=== PATIENT | female | born 1985 | race Caucasian/White ===

== ENCOUNTER 2017-11-18 07:45 | Inpatient (IN) | payer OTHER ==
[~2017-11-18] VITALS: Ht 170.2 cm; Wt 90.3 kg
[~2017-11-18 07:45] MED LIST: DOCU100C33 PO; IBUP-1222 PO
[2017-11-18] MEDS ORDERED: NEWBORN KIT ONE (21:58)
[2017-11-18] MEDS ORDERED: OXYTOCIN 30U/ 0.9% NaCL 500ML 500 ML ONE (21:58)
[2017-11-18] MEDS ORDERED: SODIUM CITRATE/CITRIC ACID 30 ML UDC ONE (21:59)
[2017-11-18] MEDS ORDERED: LACTATED RINGERS 1,000 ML IV SCH ×2 (22:02→22:30)
[2017-11-18] MEDS ORDERED: OXYTOCIN 30U/ 0.9% NaCL 500ML 500 ML IV SCH (22:02)
[2017-11-18 22:29] LABS: BASOPHILS # (AUTO) 0.02 x10^3/uL (0-0.1); BASOPHILS % (AUTO) 0 % (0-1); EOSINOPHILS % (AUTO) 1 % (1-7); LYMPHOCYTES # (AUTO) 1.83 x10^3/uL (1-3.4); LYMPHOCYTES % (AUTO) 17 % (22-44); MD NO; MEAN CORPUSCULAR HEMOGLOBIN 32.4 pg (27.0-34.8); MEAN CORPUSCULAR HGB CONC 34.1 g/dL (32.4-35.8); MEAN CORPUSCULAR VOLUME 94.8 fL (80-100); MEAN PLATELET VOLUME 8.9 fL (7.4-10.4); MONOCYTES % (AUTO) 8 % (2-9); NEUTROPHILS # (AUTO) 8.19 x10^3/uL (1.8-6.8); NEUTROPHILS % (AUTO) 74 % (42-75); PLATELET COUNT 189 x10^3/uL (130-400); RED BLOOD COUNT 4.14 x10^6/uL (3.82-5.3); RED CELL DISTRIBUTION WIDTH 13.8 % (9.6-15.2)
[2017-11-18] MEDS ORDERED: METOCLOPRAMIDE 5 MG/ML, 2ML IV ONE (22:30)
[2017-11-18] MEDS ORDERED: LACTATED RINGERS 1,000 ML IVBOLUS ONE (22:30)
[2017-11-18] MEDS ORDERED: SODIUM CITRATE/CITRIC ACID 30 ML UDC PO ONE (22:30)
[2017-11-18] MEDS ORDERED: PROMETHAZINE 25 MG/ML, 1ML IV PRN (23:00)
[2017-11-18] MEDS ORDERED: MEPERIDINE/PF 25MG/0.5ML IVPush PRN (23:00)
[2017-11-18] MEDS ORDERED: EPHEDRINE 50 MG/ML, 1ML IVPush PRN (23:00)
[2017-11-18] MEDS ORDERED: ONDANSETRON 2MG/ML, 2ML IVPush PRN (23:00)
[2017-11-18] MEDS ORDERED: FENTANYL PF 100 MCG/2ML IV PRN (23:00)
[2017-11-18] MEDS ORDERED: OXYcodone 5 MG/5 ML ORAL.SOL UDC PO PRN (23:00)
[2017-11-18] MEDS ORDERED: HYDROmorphone 1 MG/ML, 1ML IV PRN (23:00)
[2017-11-18] MEDS ORDERED: MIDAZOLAM 1 MG/ML, 2ML IV PRN (23:00)
[2017-11-18] MEDS ORDERED: hydrALAzine 20 MG/ML, 1ML IV PRN (23:00)
[2017-11-18] MEDS ORDERED: LABETALOL 5MG/ML, 20ML IV PRN (23:00)
[2017-11-18] MEDS ORDERED: ALBUTEROL SULFATE 2.5 MG/3 ML NPPB PRN (23:00)
[2017-11-18] MEDS ORDERED: HYDROcodone/APAP 7.5-325MG/15ML UDC PO PRN (23:00)
[2017-11-18] MEDS ORDERED: OXYTOCIN 10 UNITS/ML, 1ML ONE (23:28)
[2017-11-18] MEDS ORDERED: PHENYLEPHRINE 10 MG/ML ONE (23:28)
[2017-11-18] MEDS ORDERED: KETOROLAC 30 MG/1 ML ONE (23:28)
[2017-11-18] MEDS ORDERED: CEFAZOLIN 1,000 MG ONE (23:28)
[2017-11-18] MEDS ORDERED: DEXAMETHASONE 4 MG/ML, 1ML ONE (23:28)
[2017-11-18] MEDS ORDERED: EPHEDRINE 50 MG/ML, 1ML ONE (23:28)
[2017-11-18] MEDS: OXYTOCIN 30U/ 0.9% NaCL 500ML 500 ML IV SCH (23:40)
[2017-11-18] MEDS ORDERED: ONDANSETRON ODT 4 MG ONE (23:48)
[2017-11-19] MEDS ORDERED: CALCIUM CARBONATE 500 MG TAB.CHEW PO PRN
[2017-11-19] MEDS ORDERED: OXYcodone/APAP 5/325MG TABLET PO PRN ×2
[2017-11-19] MEDS ORDERED: MISOPROSTOL 200 MCG TABLET PR PRN
[2017-11-19] MEDS ORDERED: MEASLES,MUMPS&RUBELLA VACC/PF 0.5 ML SQ PRN
[2017-11-19] MEDS ORDERED: ACETAMINOPHEN 325 MG TABLET PO PRN ×2
[2017-11-19] MEDS ORDERED: ONDANSETRON 2MG/ML, 2ML IV PRN
[2017-11-19] MEDS ORDERED: MAGNESIUM HYDROXIDE 8%, 30ML UDC PO PRN
[2017-11-19] MEDS ORDERED: RHOGAM FROM BLOOD BANK 1 NOTE EA IM/IV ONE
[2017-11-19] MEDS ORDERED: DIPH,PERTUSS(ACELL),TET VAC/PF NC IM-VACC PRN
[2017-11-19 02:30] VITALS: BP 103/63
[2017-11-19] MEDS ORDERED: FENTANYL PF 100 MCG/2ML ONE (06:07)
[2017-11-19] MEDS ORDERED: KETOROLAC 30 MG/1 ML IM SCH (06:30)
[2017-11-19] MEDS: KETOROLAC 30 MG/1 ML IM/IV SCH ×3 (06:40→18:21)
[2017-11-19 08:25] VITALS: BP 101/61
[2017-11-19 08:55] LABS: MEAN CORPUSCULAR HEMOGLOBIN 32.3 pg (27.0-34.8); MEAN CORPUSCULAR HGB CONC 34.1 g/dL (32.4-35.8); MEAN CORPUSCULAR VOLUME 94.8 fL (80-100); MEAN PLATELET VOLUME 8.6 fL (7.4-10.4); PLATELET COUNT 160 x10^3/uL (130-400); RED CELL DISTRIBUTION WIDTH 13.6 % (9.6-15.2)
[2017-11-19] MEDS: PRENATAL VIT/IRON/FA 1 EACH TABLET PO SCH (09:00)
[2017-11-19 09:12] LABS: BASOPHILS # (AUTO) 0.05 x10^3/uL (0-0.1); BASOPHILS % (AUTO) 0 % (0-1); EOSINOPHILS % (AUTO) 0 % (1-7); LYMPHOCYTES # (AUTO) 1.12 x10^3/uL (1-3.4); LYMPHOCYTES % (AUTO) 9 % (22-44); MD SCAN; MONOCYTES # (AUTO) 0.65 x10^3/uL (0.2-0.8); MONOCYTES % (AUTO) 5 % (2-9); NEUTROPHILS # (AUTO) 10.48 x10^3/uL (1.8-6.8); NEUTROPHILS % (AUTO) 85 % (42-75)
[2017-11-19] MEDS: OXYTOCIN 30U/ 0.9% NaCL 500ML 500 ML IV SCH ×2 (09:40→19:40)
[2017-11-19] MEDS: MEPERIDINE/PF 50 MG/ML IM PRN ×2 (11:15→19:33)
[2017-11-19 12:35] VITALS: BP 94/57
[2017-11-19 16:30] VITALS: BP 94/57
[2017-11-19] MEDS: DOCUSATE 100 MG CAPSULE PO PRN (17:05)
[2017-11-19 20:00] VITALS: BP 94/59
[2017-11-20] MEDS: KETOROLAC 30 MG/1 ML IM/IV SCH ×3 (00:03→11:52)
[2017-11-20] MEDS: MEPERIDINE/PF 50 MG/ML IM PRN (00:21)
[2017-11-20] MEDS: OXYTOCIN 30U/ 0.9% NaCL 500ML 500 ML IV SCH ×2 (05:40→15:40)
[2017-11-20] MEDS: DOCUSATE 100 MG CAPSULE PO PRN ×2 (08:21→23:30)
[2017-11-20] MEDS: PRENATAL VIT/IRON/FA 1 EACH TABLET PO SCH (09:00)
[2017-11-20] MEDS: IBUPROFEN 600 MG TABLET PO PRN ×2 (17:29→23:31)
[2017-11-20 20:00] VITALS: BP 103/70
[2017-11-21] MEDS: OXYTOCIN 30U/ 0.9% NaCL 500ML 500 ML IV SCH ×2 (01:40→01:41)
[2017-11-21] MEDS: IBUPROFEN 600 MG TABLET PO PRN ×2 (05:33→12:10)
[2017-11-21 07:20] VITALS: BP 100/64
[2017-11-21] MEDS: PRENATAL VIT/IRON/FA 1 EACH TABLET PO SCH (07:40)
[2017-11-21] MEDS: DOCUSATE 100 MG CAPSULE PO PRN (07:41)
[2017-11-21] MEDS ORDERED: IBUP-1222 PO (10:06)
[2017-11-21] MEDS ORDERED: OXYC-302 PO (10:06)
== END 2017-11-21 14:14 | disposition home or self-care (01) | DRG 766 ==
LOC: LDIP 21:55 → 2NW 11-19 02:14
PROVIDERS: ADMIT Obstetrics & Gynecology; ATTEND Obstetrics & Gynecology
PROC: 10D00Z1 Extraction of Products of Conception, Low, Open Approach (ICD-10-PCS; principal; 2017-11-19)
PROC: 3E0234Z Introduction of Serum, Toxoid and Vaccine into Muscle, Percutaneous Approach (ICD-10-PCS; 2017-11-19)
PROC: 5A1935Z Respiratory Ventilation, Less than 24 Consecutive Hours (ICD-10-PCS; 2017-11-21)
DX: O34.211 Maternal care for low transverse scar from previous cesarean delivery (principal); E03.9 Hypothyroidism, unspecified; O36.60X0 Maternal care for excessive fetal growth, unspecified trimester, not applicable or unspecified; O99.284 Endocrine, nutritional and metabolic diseases complicating childbirth; O69.1XX0 Labor and delivery complicated by cord around neck, with compression, not applicable or unspecified; Z37.0 Single live birth; Z3A.39 39 weeks gestation of pregnancy; Z90.49 Acquired absence of other specified parts of digestive tract; Z23 Encounter for immunization
CPT/HCPCS: 36415; 85025; 86850; 86900; J0690; J1100; J1885; J2175; J3010; Q0162; C1765; J2370; J2590; J2765; J7120

== ENCOUNTER 2020-05-27 10:59 | Emergency (ER) | payer OTHER ==
[~2020-05-27] VITALS: Ht 168.9 cm; Wt 68.4 kg
[~2020-05-27 10:59] MED LIST changes: +OXYC-302 PO
--- NOTE | 2020-05-27 13:29 | NUR ---
pt resting in bed on phone. vss.
[2020-05-27 14:10] VITALS: BP 116/72
== END 2020-05-27 14:17 | disposition home or self-care (01) ==
LOC: ED 14:15
DX: S32.050A Wedge compression fracture of fifth lumbar vertebra, initial encounter for closed fracture (principal); S33.5XXA Sprain of ligaments of lumbar spine, initial encounter; S16.1XXA Strain of muscle, fascia and tendon at neck level, initial encounter; S46.811A Strain of other muscles, fascia and tendons at shoulder and upper arm level, right arm, initial encounter; V49.49XA Driver injured in collision with other motor vehicles in traffic accident, initial encounter; Y93.89 Activity, other specified; Y92.410 Unspecified street and highway as the place of occurrence of the external cause; Y99.8 Other external cause status
CPT/HCPCS: 72100; 99284